=== PATIENT | male | born 1980 | race Caucasian/White ===

== ENCOUNTER 2019-11-14 10:15 | Emergency (ER) | payer OTHER ==
[2019-11-14 10:29] VITALS: BP 160/88; PULSE 68; RESP 18; TEMP 97.7
[2019-11-14] MEDS ORDERED: FLUORESCEIN STRIPS 1 MG STRIP BOTH EYES ONE (10:51)
[2019-11-14] MEDS ORDERED: PROPARACAINE 0.5% OPHTH DROPS 15 ML BTL BOTH EYES STA (10:51)
[2019-11-14] MEDS ORDERED: DIPH,PERTUS(ACELL)TETVAC-LF 0.5 ML VIAL IM ONE (10:52)
[2019-11-14] MEDS ORDERED: ERYTHROMYCIN 5 MG/GM OPHTH OINT 1 GM TUBE BOTH EYES STA (11:28)
--- NOTE | 2019-11-14 12:08 | ED ---
General Adult HPI - General Chief complaint: Eye Problems Stated complaint: [facility]-eye injury Time Seen by Provider: 11/14/19 10:51 Source: patient, RN notes reviewed Mode of arrival: ambulatory - History of Present Illness Initial comments: 39-year-old male presents to the emergency department for a chief of possible foreign body in the left eye. Patient states he was scraping a wall when he felt something go in his eye. He denies any high mechanism impact to the left eye. Patient states his eye is very irritated. States it is painful to open. Patient denies any significant visual changes but does state his vision is a little bit blurry from the tears. Patient is not up-to-date on tetanus. Patient does not wear contacts.Patient has no other complaints at this time including shortness of breath, chest pain, abdominal pain, nausea or vomiting, headache, or visual changes. - Related Data Previous Rx's Medication Instructions Recorded Erythromycin Ophth Oint [Romycin 1 applic LEFT EYE QID 7 Days #1 11/14/19 Ophth Oint] tube Allergies Allergy/AdvReac Type Severity Reaction Status Date / Time No Known Allergies Allergy Verified 11/14/19 10:29 Review of Systems ROS Statement: Those systems with pertinent positive or pertinent negative responses have been documented in the HPI. ROS Other: All systems not noted in ROS Statement are negative. Past Medical History Past Medical History: No Reported History History of Any Multi-Drug Resistant Organisms: None Reported Past Surgical History: Appendectomy Additional Past Surgical History / Comment(s): cyst Past Psychological History: Anxiety Smoking Status: Never smoker Past Alcohol Use History: Occasional Past Drug Use History: None Reported General Exam General appearance: alert, in no apparent distress Head exam: Present: atraumatic, normocephalic, normal inspection Eye exam: Present: PERRL, EOMI, conjunctival injection (Left conjunctival injec tion). Absent: scleral icterus, periorbital swelling Expanded Eyelids: Normal Inspection: Bilateral (No foreign body noted under the eyelids) Pupils: Regular, Round: Bilateral Sclera/Conjunctival: Normal Inspection: Right, Injection: Left Visual acuity (R) = 20/: 30 Visual acuity (L) = 20/: 50 Course Vital Signs 11/14/19 10:24 Temperature 97.7 F Pulse Rate 68 Respiratory 18 Rate Blood Pressure 160/88 O2 Sat by Pulse 98 Oximetry Medical Decision Making - Medical Decision Making Patient presents for possible foreign body. Patient states that he was scraping a wall when he felt something go in his eye. No high mechanism history. The eye was numbed with proparacaine which completely alleviated patient's pain. It was then stained with fluorescein stain and visual is with the Wood's lamp. There is a 0.5 x 0.5 cm abrasion over the center of the left eye. I do not see any evidence for foreign body. Negative Fabiano sign. Pupil is round and reactive. Negative teardrop sign. Patient has abrasion to the left eye. No history of contacts. He was treated with erythromycin ointment. Tetanus updated. I did recommend ophthalmology follow-up. He will return with any worsening symptoms I discussed this case with attending Dr. Li who agrees with this assessment and treatment plan. Disposition Clinical Impression: Corneal abrasion Disposition: HOME SELF-CARE Condition: Good Instructions (If sedation given, give patient instructions): Corneal Abrasion (ED) Additional Instructions: Please use antibiotic ointment every 6 hours for 7 days. Please follow-up with ophthalmology in one to 2 days. If you have any worsening symptoms including visual changes return to the emergency department. Prescriptions: Erythromycin Ophth Oint [Romycin Ophth Oint] 1 applic LEFT EYE QID 7 Days #1 tube Is patient prescribed a controlled substance at d/c from ED?: No Referrals: Sharon Xiong MD [STAFF PHYSICIAN] - 1-2 days Yasmani Johansen MD [STAFF PHYSICIAN] - 1-2 days Time of Disposition: 12:02
== END 2019-11-14 12:19 | disposition home or self-care (01) ==
LOC: EC 10:15
DX: S05.02XA Injury of conjunctiva and corneal abrasion without foreign body, left eye, initial encounter (principal); Z23 Encounter for immunization; X58.XXXA Exposure to other specified factors, initial encounter; Y93.89 Activity, other specified; Y99.0 Civilian activity done for income or pay
CPT/HCPCS: 90471; 90715; 99283